=== PATIENT | male | born 2000 | race Caucasian/White ===

== ENCOUNTER 2021-05-06 01:21 | Emergency (ER) | payer BC ==
[~2021-05-06] VITALS: Ht 181 cm; Wt 93.0 kg
[2021-05-06] MEDS ORDERED: LACTATED RINGERS 1,000 ML IV ONE ×2 (01:30→02:30)
[2021-05-06] MEDS ORDERED: NS IV 1000 ML 1,000 ML IV SCH ×2 (01:30→02:30)
[2021-05-06] MEDS ORDERED: PANTOPRAZOLE 40 MG (PROTONIX) VIAL IV ONE (01:30)
[2021-05-06] MEDS ORDERED: ONDANSETRON 4 MG/2 ML (SDV) Z0FRAN IVP ONE (01:30)
[2021-05-06 01:33] LABS: BASOPHILS % (AUTO) 0 % (0-10); EOSINOPHILS % (AUTO) 0 % (0-10); HEMATOCRIT 43 % (40-54); HEMOGLOBIN 14.9 g/dL (13.3-17.7); LYMPHOCYTES # (AUTO) 1.3 10^3/uL (1.0-4.0); LYMPHOCYTES % (AUTO) 16 % (12-44); MEAN CORPUSCULAR HEMOGLOBIN 29 pg (25-34); MEAN CORPUSCULAR HGB CONC 35 g/dL (32-36); MEAN CORPUSCULAR VOLUME 84 fL (80-99); MEAN PLATELET VOLUME 9.9 fL (9.0-12.2); MONOCYTES # (AUTO) 0.4 10^3/uL (0.0-1.0); MONOCYTES % (AUTO) 5 % (0-12); NEUTROPHILS % (AUTO) 78 % (42-75); PLATELET COUNT 274 10^3/uL (130-400); WHITE BLOOD COUNT 7.6 10^3/uL (4.3-11.0)
--- NOTE | 2021-05-06 01:36 | ED General ---
General Chief Complaint: Substance Abuse Stated Complaint: ETOH Nursing Triage Note: BROUGHT IN BY FREJOSE RAMON AFTER OVER CONSUMPTION OF ETOH. Source of Information: Patient (HEAVILY INTOXICATED AND CANNOT PROVIDE MUCH INFORMATION) History of Present Illness Date Seen by Provider: May 06, 2021 Time Seen by Provider: 01:21 Initial Comments PT ARRIVES VIA POV --FRIEND BROUGHT HIM TO ER, THEN LEFT BROUGHT INTO ER IN A WHEELCHAIR--NEEDED ASSISTANCE OUT OF VEHICLE PT HAS BEEN DRINKING AND HAS "PASSED OUT" AND "WAS UNRESPONSIVE" PER FRIEND PT HAS HAD UNKNOWN AMOUNT OF ALCOHOL, BUT PT DOES STATE HE HAS BEEN DRINKING VODKA AND HE WAS AT "505" BAR PT HAS VOMITED ALL OVER HIMSELF, AND PANTS ARE SATURATED--UNKNOWN IF THIS IS FROM VOMITING OR FROM PEEING HIS PANTS. NO BOWEL INCONTINENCE NO OBVIOUS INJURY DENIES MEDICAL PROBLEMS, DENIES ANY MEDICATIONS, DENIES ANY SURGERIES. DENIES ANY ALLERGIES EXCEPT TO CATS AND DOGS. STATES HE IS A [employer] ST[employer] Allergies and Home Medications Allergies Coded Allergies: No Known Drug Allergies (Unverified , 05/06/21) Patient Home Medication List Home Medication List Reviewed: Yes No Active Prescriptions or Reported Meds Review of Systems Review of Systems Constitutional: other (UNABLE TO OBTAIN) Past Bifpuwb-[id number]-[id number] Hx Patient Social History Tobacco Use?: No Substance use?: No Alcohol Use?: Yes Alcohol type: Hard Liquor Alcohol Frequency: Once in a while Pt feels they are or have been: No Past Medical History Surgery/Hospitalization HX: DENIES Physical Exam Vital Signs Vital Signs - First Documented 05/06/21 01:21 Temp 36.6 Pulse 73 Resp 16 B/P (MAP) 132/89 (103) Pulse Ox 98 O2 Delivery Room Air Capillary Refill : Less Than 3 Seconds Height, Weight, BMI Height: '" Weight: lbs. oz. kg; 28.00 BMI Method: General Appearance: Other (PT IS HEAVILY INTOXICATED, MINIMALLY VERBAL AND SPEECH IS VERY HEAVILY SLURRED. REEKS OF ALCOHOL AND IS COVERED IN VOMIT, AND PANTS ARE SATURATED--UNKNOWN IF THIS IS FROM URINATING HIMSELF OR FROM VOMIT. . PT IS VERY LETHARGIC, BUT IS MAINTAINING AIRWAY AT THIS TIME. ) HEENT: Other (VOMIT ALL OVER FACE) Respiratory: Normal Breath Sounds, No Accessory Muscle Use, No Respiratory Distress, Other (NO SNOROUS BREATHING) Cardiovascular: Regular Rate, Rhythm, No Murmur Gastrointestinal: Soft Neurologic/Psychiatric: Other (INTOXICATED NOTED ABOVE. GROSS MOTOR AND SENSORY APPEAR TO BE GROSSLY INTACT, BUT PT IS NOT FOLLOWING COMMANDS AT THIS TIME. ) Skin: Cool, Diaphoresis, Pallor Progress/Results/Core Measures Suspected Sepsis SIRS Temperature: Pulse: 73 Respiratory Rate: 16 Laboratory Tests 05/06/21 01:25: White Blood Count 7.6 Blood Pressure 132 /89 Mean: 103 Laboratory Tests 05/06/21 01:25: Creatinine 0.89, Platelet Count 274, Total Bilirubin 0.4 Results/Orders Lab Results Laboratory Tests Test 05/06/21 01:25 05/06/21 01:33 Range/Units White Blood Count 7.6 4.3-11.0 10^3/uL Red Blood Count 5.12 4.30-5.52 10^6/uL Hemoglobin 14.9 13.3-17.7 g/dL Hematocrit 43 40-54 % Mean Corpuscular Volume 84 80-99 fL Mean Corpuscular Hemoglobin 29 25-34 pg Mean Corpuscular Hemoglobin Concent 35 32-36 g/dL Red Cell Distribution Width 12.3 10.0-14.5 % Platelet Count 274 130-400 10^3/uL Mean Platelet Volume 9.9 9.0-12.2 fL Immature Granulocyte % (Auto) 0 % Neutrophils (%) (Auto) 78 H 42-75 % Lymphocytes (%) (Auto) 16 12-44 % Monocytes (%) (Auto) 5 0-12 % Eosinophils (%) (Auto) 0 0-10 % Basophils (%) (Auto) 0 0-10 % Neutrophils # (Auto) 6.0 1.8-7.8 10^3/uL Lymphocytes # (Auto) 1.3 1.0-4.0 10^3/uL Monocytes # (Auto) 0.4 0.0-1.0 10^3/uL Eosinophils # (Auto) 0.0 0.0-0.3 10^3/uL Basophils # (Auto) 0.0 0.0-0.1 10^3/uL Immature Granulocyte # (Auto) 0.0 0.0-0.1 10^3/uL Sodium Level 137 135-145 MMOL/L Potassium Level 3.2 L 3.6-5.0 MMOL/L Chloride Level 104 98-107 MMOL/L Carbon Dioxide Level 14 L 21-32 MMOL/L Anion Gap 19 H 5-14 MMOL/L Blood Urea Nitrogen 14 7-18 MG/DL Creatinine 0.89 0.60-1.30 MG/DL Estimat Glomerular Filtration Rate 124 BUN/Creatinine Ratio 16 Glucose Level 133 H 70-105 MG/DL Calcium Level 9.4 8.5-10.1 MG/DL Corrected Calcium 8.5-10.1 MG/DL Magnesium Level 2.3 1.6-2.4 MG/DL Total Bilirubin 0.4 0.1-1.0 MG/DL Aspartate Amino Transf (AST/SGOT) 23 5-34 U/L Alanine Aminotransferase (ALT/SGPT) 31 0-55 U/L Alkaline Phosphatase 74 40-136 U/L Total Protein 7.9 6.4-8.2 GM/DL Albumin 4.8 H 3.2-4.5 GM/DL Amylase Level 36 25-125 U/L Lipase 13 8-78 U/L Salicylates Level < 5.0 L 5.0-20.0 MG/DL Acetaminophen Level < 10 L 10-30 UG/ML Serum Alcohol 273 H <10 MG/DL Urine Color YELLOW Urine Clarity CLEAR Urine pH 6.0 5-9 Urine Specific [place] <=1.005 1.016-1.022 Urine Protein NEGATIVE NEGATIVE Urine Glucose (UA) NEGATIVE NEGATIVE Urine Ketones NEGATIVE NEGATIVE Urine Nitrite NEGATIVE NEGATIVE Urine Bilirubin NEGATIVE NEGATIVE Urine Urobilinogen 0.2 < = 1.0 MG/DL Urine Leukocyte Esterase NEGATIVE NEGATIVE Urine RBC (Auto) NEGATIVE NEGATIVE Urine RBC NONE /HPF Urine WBC NONE /HPF Urine Crystals NONE /LPF Urine Bacteria NEGATIVE /HPF Urine Casts NONE /LPF Urine Mucus NEGATIVE /LPF Urine Culture Indicated NO Urine Opiates Screen NEGATIVE NEGATIVE Urine Oxycodone Screen NEGATIVE NEGATIVE Urine Methadone Screen NEGATIVE NEGATIVE Urine Propoxyphene Screen NEGATIVE NEGATIVE Urine Barbiturates Screen NEGATIVE NEGATIVE Ur Tricyclic Antidepressants Screen NEGATIVE NEGATIVE Urine Phencyclidine Screen NEGATIVE NEGATIVE Urine Amphetamines Screen POSITIVE H NEGATIVE Urine Methamphetamines Screen NEGATIVE NEGATIVE Urine Benzodiazepines Screen NEGATIVE NEGATIVE Urine Cocaine Screen NEGATIVE NEGATIVE Urine Cannabinoids Screen NEGATIVE NEGATIVE My Orders Orders - ALDEN CHAPPELL DO Ed Iv/Invasive Line Start (05/06/21 01:25) O2 (05/06/21 01:25) Monitor-Rhythm Ecg Trace Only (05/06/21 01:25) Acetaminophen (05/06/21 01:25) Alcohol (05/06/21 01:25) Amylase (05/06/21 01:25) Cbc With Automated Diff (05/06/21:25) Comprehensive Metabolic Panel (05/06/21 01:25) Drug Screen Stat (Urine) (05/06/21 01:25) Lipase (05/06/21 01:25) Magnesium (05/06/21 01:25) Salicylate (05/06/21 01:25) Ua Culture If Indicated (05/06/21 01:25) Ed Iv/Invasive Line Start (05/06/21 01:25) Lactated Ringers (Lr 1000 Ml Iv Solution (05/06/21 01:30) Ns Iv 1000 Ml (Sodium Chloride 0.9%) (05/06/21 01:30) Ondansetron Injection (Zofran Injectio (05/06/21 01:30) Catheter(Urinary) Insert & Ass 03,15 (05/06/21 01:25) Pantoprazole Injection (Protonix Injecti (05/06/21 01:30) Ed Iv/Invasive Line Start (05/06/21 02:29) Lactated Ringers (Lr 1000 Ml Iv Solution (05/06/21 02:30) Ns Iv 1000 Ml (Sodium Chloride 0.9%) (05/06/21 02:30) Medications Given in ED Current Medications Medications Dose Ordered Sig/Ozzie Route Start Time Stop Time Status Last Admin Dose Admin Lactated Ringer's 1,000 ml @ 0 mls/hr Q0M ONCE IV 05/06/21 01:30 05/06/21 01:31 DC 05/06/21 01:33 0 MLS/HR Lactated Ringer's 1,000 ml @ 0 mls/hr Q0M ONCE IV 05/06/21 02:30 05/06/21 02:31 DC 05/06/21 02:34 0 MLS/HR Ondansetron HCl 8 mg ONCE ONCE IVP 05/06/21 01:30 05/06/21 01:31 DC 05/06/21 01:33 8 MG Pantoprazole 40 mg ONCE ONCE IV 05/06/21 01:30 05/06/21 01:31 DC 05/06/21 01:33 40 MG Vital Signs/I&O 05/06/21 05/06/21 01:21 04:37 Temp 36.6 36.6 Pulse 73 91 Resp 16 18 B/P (MAP) 132/89 (103) 115/67 Pulse Ox 98 95 O2 Delivery Room Air Room Air Capillary Refill : Less Than 3 Seconds Blood Pressure Mean: 103 Progress Note : Progress Note O2 SAT 97% ON ROOM AIR, WITH NO STRIDOR, NO WHEEZING OR SNOROUS BREATHING GIVEN IV FLUIDS, ZOFRAN AND PROTONIX. NO VOMITING IN ER UNEVENTFUL ER STAY 0425--PT EASILY AWAKES, SPEECH IS MUCH LESS SLURRED, PT IS ABLE TO ANSWER QUESTIONS AND FOLLOW COMMANDS. HE ADVISED THAT WE MAY CALL HIS GIRLFRIEND TO PICK HIM UP 0425--CALLED HIS GIRLFRIEND THANG, SHE DENIES HAVING ANY ALCOHOL TONIGHT AND IS ON HER WAY HER TO PICK HIM UP. 0440--PT HAS DRESSED HIMSELF, WALKED TO AND FROM THE BATHROOM AND SPEECH IS CL EAR AND GAIT IS STEADY. Departure Impression Primary Impression: Acute alcoholic intoxication Additional Impression: AMPHETAMINE USE Disposition: 01 HOME, SELF-CARE Condition: Improved Departure-Patient Inst. Decision time for Depature: 04:25 Referrals: ALMA CLAY MD (PCP) Primary Care Physician Patient Instructions: ALCOHOL AND SUBSTANCE ABUSE, Alcohol Intoxication ED, Alcohol Use - When Is Drinking a Problem?, Drug Abuse and Drug Addiction (DC) Add. Discharge Instructions: NO ALCOHOL!!! NO DRUGS!! LOTS OF CLEAR LIQUIDS--WATER, BROTH, JELLO, GATORADE BRATS DIET--BANANAS, RICE, APPLESAUCE, TOAST, SALTINES FOLLOW UP WITH OF CHOICE NEEDED All discharge instructions reviewed with patient and/or family. Voiced understanding. Scripts No Active Prescriptions or Reported Meds ALDEN CHAPPELL DO May 06, 2021 01:36
[2021-05-06 01:43] LABS: BILIRUBIN,URINE NEGATIVE (NEGATIVE); CLARITY,URINE CLEAR; COLOR,URINE YELLOW; GLUCOSE, URINE (UA) NEGATIVE (NEGATIVE); KETONES,URINE NEGATIVE (NEGATIVE); LEUKOCYTE ESTERASE ,URINE NEGATIVE (NEGATIVE); NITRITE,URINE NEGATIVE (NEGATIVE); PROTEIN,URINE NEGATIVE (NEGATIVE)
[2021-05-06 01:45] LABS: CHLORIDE 104 MMOL/L (98-107); POTASSIUM 3.2 MMOL/L (3.6-5.0); SODIUM 137 MMOL/L (135-145)
[2021-05-06 01:46] LABS: ALBUMIN 4.8 GM/DL (3.2-4.5)
[2021-05-06 01:47] LABS: AMYLASE 36 U/L (25-125); CALCIUM 9.4 MG/DL (8.5-10.1)
[2021-05-06 01:48] LABS: GLUCOSE 133 MG/DL (70-105); TOTAL PROTEIN 7.9 GM/DL (6.4-8.2)
[2021-05-06 01:49] LABS: BACTERIA,URINE NEGATIVE /HPF
[2021-05-06 01:49] LABS: CARBON DIOXIDE 14 MMOL/L (21-32)
[2021-05-06 01:50] LABS: BILIRUBIN,TOTAL 0.4 MG/DL (0.1-1.0)
[2021-05-06 01:52] LABS: ALKALINE PHOSPHATASE 74 U/L (40-136); CREATININE SERUM 0.89 MG/DL (0.60-1.30); GFR ESTIMATED 124
[2021-05-06 01:53] LABS: BUN/CREATININE RATIO 16
[2021-05-06 01:55] LABS: ALANINE AMINOTRANSFERASE 31 U/L (0-55); MAGNESIUM 2.3 MG/DL (1.6-2.4); SALICYLATE < 5.0 MG/DL (5.0-20.0)
[2021-05-06 01:56] LABS: LIPASE 13 U/L (8-78)
[2021-05-06 01:56] LABS: AMPHETAMINE SCREEN, URINE POSITIVE (NEGATIVE); BARBITURATE SCREEN URINE NEGATIVE (NEGATIVE); BENZODIAZEPINES SCREEN URINE NEGATIVE (NEGATIVE); CANNABINOID SCREEN, URINE NEGATIVE (NEGATIVE); COCAINE SCREEN URINE NEGATIVE (NEGATIVE); METHADONE STAT NEGATIVE (NEGATIVE); METHAMPHETAMINE SCREEN URINE S NEGATIVE (NEGATIVE); OPIATE SCREEN URINE NEGATIVE (NEGATIVE); OXYCODONE STAT NEGATIVE (NEGATIVE); PROPOXYPHENE STAT NEGATIVE (NEGATIVE); TRICYCLIC ANTIDEPRESSANTS SCRE NEGATIVE (NEGATIVE)
[2021-05-06 01:57] LABS: ACETAMINOPHEN < 10 UG/ML (10-30)
[2021-05-06 04:37] VITALS: BP 115/67
== END 2021-05-06 04:37 | disposition home or self-care (01) ==
LOC: EDUNIT# 01:21 → ER 01:25
DX: F10.929 Alcohol use, unspecified with intoxication, unspecified (principal); F15.90 Other stimulant use, unspecified, uncomplicated; Y90.8 Blood alcohol level of 240 mg/100 ml or more
CPT/HCPCS: 51702; 80053; 80306; 81000; 82150; 83690; 83735; 85025; 93041; 99284; G0480 ×3; 36415; 80320; 80329